=== PATIENT | male | born 1985 | race African-American/Black ===

== ENCOUNTER 2017-02-10 06:17 | Day surgery (SDC) | payer OTHER ==
[2017-02-03 13:32] VITALS: BMI 27.8
[2017-02-10] MEDS ORDERED: DEXAMETHASONE SOD PHOSPHATE/PF 10 MG/ML SDV ONE (07:09)
[2017-02-10] MEDS ORDERED: MIDAZOLAM HCL 2 MG/2 ML SINGLE DOSE VIAL ONE (07:09)
[2017-02-10] MEDS ORDERED: BUPIVACAINE HCL/PF 2.5 MG/ML - 30 ML VIAL IJ ONE (07:10)
[2017-02-10] MEDS ORDERED: KETOROLAC TROMETHAMINE 60 MG/2 ML VIAL ONE (07:37)
[2017-02-10] MEDS ORDERED: morphine CARPU-JECT 10 MG/1 ML DISP.SYRIN ONE (07:37)
[2017-02-10] MEDS ORDERED: ceFAZolin SODIUM 1 GM VIAL ONE (08:12)
[2017-02-10] MEDS ORDERED: ONDANSETRON 4 MG/2 ML VIAL ONE (08:14)
[2017-02-10] MEDS ORDERED: DEXAMETHASONE SOD PHOSPHATE 4 MG/1 ML VIAL ONE (08:14)
[2017-02-10] MEDS ORDERED: diphenhydrAMINE HCL 25 MG CAPSULE (FP) PO ONE (12:18)
[2017-02-10] MEDS ORDERED: oxyCODONE HCL 5 MG TABLET PO PRN (13:40)
[2017-02-10] MEDS ORDERED: ONDANSETRON 4 MG/2 ML VIAL IVPUSH PRN (13:40)
[2017-02-10] MEDS ORDERED: LACTATED RINGERS SOLUTION 1,000 ML IV SCH (13:45)
[2017-02-10] MEDS ORDERED: diphenhydrAMINE HCL 12.5 MG/5 ML UNIT-DOSE CUPS PO ONE (13:46)
[2017-02-10 14:15] VITALS: TEMP 98
[2017-02-10 14:20] VITALS: BP 140/85; PULSE 71
--- NOTE | 2017-02-10 18:42 | OP ---
DATE OF OPERATION: 02/10/2017 PREOPERATIVE DIAGNOSIS: Left knee anterior cruciate ligament rupture, medial meniscal tear. POSTOPERATIVE DIAGNOSIS: Left knee anterior cruciate ligament rupture, medial meniscal tear. PROCEDURE: Left knee arthroscopy, hamstring autograft anterior cruciate ligament reconstruction, partial medial meniscectomy. SURGEON: Gutierrez Coreas M.D. SENIOR TRAINER: Maxine Gonsalez [facility], whose skillful assistance was necessary for the safe and timely performance of this procedure. Ms. Gonsalez was able to assist in limb positioning, graft harvest, graft preparation, driving the camera, graft passage, as well as placement of orthopedic fixation hardware. IMPLANTS USED: Arthrex Tightrope x2. POSTOPERATIVE CONDITION: Stable. COMPLICATIONS: None. TOURNIQUET TIME: One hour. INDICATION: This is a pleasant gentleman suffered an ACL injury. MRI demonstrated ACL and medial meniscal tears. Treatment options including nonoperative with conservative care like physical therapy, or medications, injections were discussed. Alternatively, we discussed arthroscopic ACL reconstruction as well as meniscectomy. Reviewed the surgical procedure in detail. Discussed surgical risks extensively including bleeding, infection, neurovascular injury, need for further surgery, postoperative pain and stiffness, graft failure, progression of osteoarthritis, persistent instability. We reviewed medical risks such as heart attack, stroke, DVT, PE and . We discussed the rehabilitation protocol afterwards. We discussed the use of perioperative DVT prophylaxis as well as perioperative antibiotic prophylaxis. I addressed all the patient's questions. He voiced understanding, elected to proceed. PROCEDURE: Patient was brought to the operating room after administration of regional block in the preoperative holding area. The left lower extremity was then prepped and draped in the usual sterile fashion. Preoperative antibiotics were given and the usual timeout procedure was performed. At this point, the wound was examined. There was positive Jennifer and positive pivot shift. There was full range of motion. There was trace effusion. Given the obvious instability, decided to perform a graft harvest first. Incision was planned out over the pes tendons. This was carried down through skin and subcutaneous tissue. Blunt spreading was used to expose the sartorius fascia. The pes tendons were now palpated. Incision was planned out along the course of the semi-tendinosis. This was done through the sartorius fascia. A right angle clamp was now used to retrieve the semitendinosus. Fiberwire suture was placed into the semitendinosus in whipstitch fashion. A 15 blade was now used to elevate the tendon off the anterior aspect of the tibia. Using finger dissection as well as Metzenbaum scissors, the tendon was freed of any surrounding connections to the soft tissue. A tendon stripper was then slid over the tendon; it was retrieved out. It was felt this was adequate to perform a single tendon ACL reconstruction, and this was prepped on the back table, loaded onto 2 Tightropes and whip stitched onto there. Concurrently, lateral arthroscopic portal was now established using 11 blade. The tourniquet had been inflated just prior to the arthroscopy portion. The arthroscope was now passed to the knee. Examination of the patellofemoral joint demonstrated no significant lesions. Passed knee arthroscope down to the trochlea, demonstrated complete avulsion of the ACL off the femoral side. It was sitting scarred into the PCL. Arthroscope was now passed in the medial compartment. Here, medial portal was established under spinal needle localization. Medial compartment was now examined, demonstrating some superficial cartilage fraying on the femoral side. No tibial lesions were seen. Meniscus was examined demonstrating a tear in the white-white zone at the body and posterior horn. Utilizing a combination of meniscal biters as well as shaver, this was debrided down to a stable base. Arthroscope was now passed to the lateral compartment. Here, there were no surface cartilage lesions seen. There was no meniscal tear seen. The meniscus was probed and found to be stable. Arthroscope was now passed into the notch. Here, the remnants of the ACL were debrided. Electrocautery was used to debride any soft tissue off the lateral wall and femoral notch. The ACL was also debrided off the tibial footprint. A trochlea was now inserted into the knee. Based on the graft preparation time, a size 9 x 65 mm graft was obtained. The guide was placed at the lateral bifurcate ridge. Small incision was made in distal thigh and blunt spreading was used to advance the trocar down to the level of the bone. The Flipcutter was now drilled into the knee. Flipcutter position was verified, and then the Flipcutter was toggled. A 9 x 35 mm socket was created on the femoral side. The passing suture was then placed, and the equipment was removed. Attention was now turned to the tibial side. Here, the tibial drill guide was inserted. The trocar rested against the tibia through the hamstring harvest incision. The Flipcutter was now drilled in and placement was satisfactory in the center of the anatomic footprint. Flipcutter was now toggled and a 40 mm x 9 mm socket was created here. Again, passing sutures were placed. The lateral portal was now enlarged, and then both sutures were retrieved out of the lateral portal, careful to not cross them. The graft was now passed into the femoral side, directly visualizing the button from the Tightrope as it passed through the femoral socket and sat onto the femoral cortex. Graft was then toggled 20 mm into the femoral socket. The tibial sutures were now passed. The graft was passed into the tibial socket. The knee was now cycled 10 times. The button was loaded onto the graft. The knee was placed into position with 25 degrees of flexion. The Tightrope was now toggled, securing the tibial side in as well at 20 mm, with 20 mm of graft in here as well. The excess sutures were now cut and tied. A Jennifer maneuver was performed demonstrating good stability to the knee. The excess fluids were withdrawn from the knee. The arthroscope was removed. The deep tissues were approximated using 0 Vicryl. The subcutaneous tissue was approximated using 2-0 Vicryl. The skin was closed using 3-0 nylon. The tourniquet was let down after 1 hour. The patient was transferred to the recovery room in stable condition. Yovani LEDBETTER/[id number]
--- NOTE | 2017-02-15 16:31 | PATH ---
Surgical Pathology Report Patient Name: CLAU LANGE Med. Rec. #: [id number] /Age/Gender: 1985 (Age: 31) / M Account: [id number] Location: [facility] AMBULATORY Taken: 02/10/2017 Received: 02/10/2017 Reported: 02/15/2017 Physicians: Gutierrez Coreas M.D. Specimen(s) Received SHAVINGS LEFT KNEE Clinical History Left ACL tear Final Diagnosis KNEE, LEFT, ARTHROSCOPIC SHAVINGS: FIBROSYNOVIAL TISSUE, FIBROCOLLAGENOUS TISSUE AND FRAGMENTS OF BONE. Electronically Signed Ivis Kim M.D. Gross Description Received in formalin, labeled "shavings left knee," is a 4.3 x 2.8 x 0.4 cm. aggregate of briggs-yellow soft tissue fragments. A teleservices representative portion is submitted in one cassette. /02/11/201702/11/2017
== END 2017-02-10 13:30 | disposition home or self-care (01) ==
LOC: FASU 06:17
PROVIDERS: ATTEND Orthopaedic Surgery Sports Medicine
PROC: 0MUP47Z Supplement Left Knee Bursa and Ligament with Autologous Tissue Substitute, Percutaneous Endoscopic Approach (ICD-10-PCS; 2017-02-10)
PROC: 0SBD4ZZ Excision of Left Knee Joint, Percutaneous Endoscopic Approach (ICD-10-PCS; principal; 2017-02-10 08:24)
DX: S83.512A Sprain of anterior cruciate ligament of left knee, initial encounter (principal); S83.242A Other tear of medial meniscus, current injury, left knee, initial encounter; X58.XXXA Exposure to other specified factors, initial encounter; Y93.9 Activity, unspecified; Y92.9 Unspecified place or not applicable
CPT/HCPCS: 88304-TC; 94760; 97116-GP

== ENCOUNTER 2022-09-16 10:41 | Day surgery (SDC) | payer OTHER ==
[2022-09-15 15:33] VITALS: BMI 27.1
[2022-09-16] MEDS ORDERED: ONDANSETRON 4 MG/2 ML VIAL IVPUSH PRN (13:26)
[2022-09-16] MEDS ORDERED: oxyCODONE HCL 5 MG TABLET PO PRN (13:26)
[2022-09-16] MEDS ORDERED: ACETAMINOPHEN 325 MG TABLET (FP) PO PRN (13:26)
[2022-09-16] MEDS ORDERED: LACTATED RINGERS SOLUTION 1,000 ML IV SCH (13:30)
[2022-09-16] MEDS ORDERED: BUPIVACAINE HCL/PF 0.5% (5 MG/ML) 30 ML VIAL IJ ONE (13:32)
[2022-09-16] MEDS ORDERED: MIDAZOLAM HCL 2 MG/2 ML SINGLE DOSE VIAL ONE (13:32)
[2022-09-16] MEDS ORDERED: ACETAMINOPHEN INJECTION 100 ML IVPB ONE (13:32)
[2022-09-16] MEDS ORDERED: DEXAMETHASONE SOD PHOSPHATE/PF 10 MG/ML SDV ONE (13:32)
[2022-09-16] MEDS ORDERED: PROPOFOL 80 ML ONE (13:49)
[2022-09-16] MEDS ORDERED: VANCOMYCIN 1,000 MG VIAL (RESTRICTED TO ID ONLY) ONE (14:02)
[2022-09-16] MEDS ORDERED: ceFAZolin SODIUM 1 GM VIAL ONE ×2 (14:33)
[2022-09-16] MEDS ORDERED: TRANEXAMIC ACID 1000 MG/10 ML VIAL ONE (14:33)
[2022-09-16] MEDS ORDERED: DEXAMETHASONE SOD PHOSPHATE 4 MG/1 ML VIAL ONE (14:46)
[2022-09-16] MEDS ORDERED: ONDANSETRON 4 MG/2 ML VIAL ONE (14:47)
[2022-09-16 22:18] VITALS: BP 114/75; PULSE 70; RESP 19; TEMP 97.5
== END 2022-09-16 22:19 | disposition home or self-care (01) ==
LOC: FASU 10:41
PROVIDERS: ATTEND Orthopaedic Surgery Sports Medicine
PROC: 0SBD4ZZ Excision of Left Knee Joint, Percutaneous Endoscopic Approach (ICD-10-PCS; principal; 2022-09-16 14:51)
DX: S83.512A Sprain of anterior cruciate ligament of left knee, initial encounter (principal); S83.242A Other tear of medial meniscus, current injury, left knee, initial encounter; X58.XXXA Exposure to other specified factors, initial encounter; Y93.9 Activity, unspecified; Y92.9 Unspecified place or not applicable
CPT/HCPCS: 94760